=== PATIENT | female | born 1960 | race Caucasian/White ===

== ENCOUNTER 2024-01-07 09:53 | Observation (INO) | payer BC ==
[2024-01-07] MEDS ORDERED: Sodium Chloride 0.9% 10 ML Syringe FLUSH PRN ×2 (10:04→13:31)
[2024-01-07 10:10] LABS: BASOPHILS ABSOLUTE AUTO 0.02 10^3/uL (0.00-0.10); BASOPHILS PERCENT AUTO 0.1 % (0.0-1.0); EOSINOPHILS ABSOLUTE AUTO 0.01 10^3/uL (0.10-0.30); HEMATOCRIT 33.5 % (37.0-47.0); HEMOGLOBIN 11.9 g/dL (12.0-16.0); IMMATURE GRAN PERCENT AUTO 0.4 % (0.0-5.0); LYMPHOCYTES ABSOLUTE AUTO 3.04 10^3/uL (1.00-4.00); LYMPHOCYTES PERCENT AUTO 13.1 % (20.0-40.0); MEAN CORPUSCULAR HEMOGLOBIN 31.4 pg (27.0-31.0); MEAN CORPUSCULAR HGB CONC 35.5 g/dL (32.0-36.0); MEAN CORPUSCULAR VOLUME 88.4 fL (82.0-92.0); MEAN PLATELET VOLUME 9.1 fL (7.4-10.4); MONOCYTES ABSOLUTE AUTO 1.45 10^3/uL (0.10-0.80); MONOCYTES PERCENT AUTO 6.3 % (2.0-8.0); NEUTROPHILS ABSOLUTE AUTO 18.54 10^3/uL (2.50-7.00); NEUTROPHILS PERCENT AUTO 80.1 % (50.0-70.0); PLATELET COUNT,PLT 216 10^3/uL (150-400); RED BLOOD CELL COUNT 3.79 10^6/uL (3.80-5.50); RED CELL DISTRIBUTION WIDTH 12.3 % (11.5-14.5); WHITE BLOOD CELL COUNT,WBC 23.16 10^3/uL (5.00-10.00)
[2024-01-07] MEDS: Sodium Chloride 0.9% 1,000 ML IV ONE ×2 (10:10→11:15)
[2024-01-07 10:34] LABS: ALBUMIN 3.29 g/dL (3.40-5.00); ANION GAP 15.2 mmol/L (5-15); BILIRUBIN TOTAL 0.8 mg/dL (0.2-1.0); CALCIUM 8.2 mg/dL (8.7-10.3); CARBON DIOXIDE,CO2 24.1 mmol/L (21.0-32.0); CREATININE 1.77 mg/dL (0.51-1.17); EST CRCL DRUG DOSING (CG) 29.65 mL/min; POTASSIUM,K 3.3 mmol/L (3.5-5.1); PROTEIN TOTAL,TP 7.5 g/dL (6.4-8.2)
[2024-01-07 10:52] LABS: APPEARANCE,URINE CLOUDY (CLEAR); BILIRUBIN,URINE SMALL (NEGATIVE); COLOR,URINE YELLOW (YELLOW); GLUCOSE,URINE NEGATIVE (NEGATIVE); KETONES,URINE NEGATIVE (NEGATIVE); LEUKOCYTE ESTERASE,URINE SMALL (NEGATIVE); NITRITE,URINE NEGATIVE (NEGATIVE); PH,URINE 5.5 (5.0-9.0); PROTEIN,URINE 100 mg/dL (NEGATIVE); UROBILINOGEN,URINE 0.2 E.U./dL (0.2-1.0)
[2024-01-07] MEDS: Sodium Chloride 0.9% 1,000 ML ONE (11:16)
[2024-01-07 11:20] LABS: INFLUENZA A NAA NEGATIVE (NEGATIVE); INFLUENZA B NAA NEGATIVE (NEGATIVE); RESPIRATORY SYNCYTIAL VIR NAA NEGATIVE (NEGATIVE)
[2024-01-07 11:28] LABS: OCCULT BLOOD,URINE SMALL (NEGATIVE)
[2024-01-07 11:29] LABS: EPITHELIAL CELLS,URINE FEW /LPF; RBC,URINE 0-5 /HPF (0-5)
[2024-01-07 11:29] LABS: CORONAVIRUS COVID-19 NAA NEGATIVE (NEGATIVE)
[2024-01-07 11:30] LABS: BACTERIA,URINE FEW /HPF (NONE TO FEW); MUCUS,URINE FEW /LPF (NEGATIVE)
[2024-01-07 11:34] LABS: LACTIC ACID 1.5 mmol/L (0.4-2.0)
[2024-01-07] MEDS: Levofloxacin/Dextrose 5%-Water 500 MG in Premix Bag 1 BAG IV ONE (11:43)
[2024-01-07] MEDS: Albuterol/Ipratropium 3.0-0.5 MG/3 ML Neb Soln NEB ONE (11:54)
[2024-01-07] MEDS ORDERED: Albuterol/Ipratropium 3.0-0.5 MG/3 ML Neb Soln NEB PRN (13:31)
[2024-01-07] MEDS ORDERED: Ibuprofen 200 MG Tab PO PRN (13:31)
[2024-01-07] MEDS ORDERED: Acetaminophen 325 MG Tab PO PRN (13:31)
[2024-01-07] MEDS ORDERED: Ondansetron 4 MG/2 ML SDV IV PRN (13:31)
[2024-01-07] MEDS ORDERED: Polyethylene Glycol 3350 Powder 17 GM Packet PO PRN (13:31)
[2024-01-07] MEDS ORDERED: Magnesium Hydroxide 400 MG/5 ML Susp 30 ML Cup PO PRN (13:31)
[2024-01-07] MEDS: amLODIPine 5 MG Tab**OWN MED PO SCH (13:45)
[2024-01-07] MEDS: metroNIDAZOLE 500 MG Tab PO SCH (13:56)
[2024-01-07] MEDS ORDERED: Sodium Chloride 0.9% 250 ML IV SCH (14:00)
[2024-01-07] MEDS: Sodium Chloride 0.9% 1,000 ML IV SCH (15:31)
[2024-01-07] MEDS: Levofloxacin 500 MG Tab PO SCH (22:59)
[2024-01-08 07:49] LABS: BASOPHILS ABSOLUTE AUTO 0.01 10^3/uL (0.00-0.10); BASOPHILS PERCENT AUTO 0.1 % (0.0-1.0); HEMATOCRIT 31.5 % (37.0-47.0); HEMOGLOBIN 10.7 g/dL (12.0-16.0); IMMATURE GRAN ABSOLUTE AUTO 0.04 10^3/uL (0.00-0.50); IMMATURE GRAN PERCENT AUTO 0.3 % (0.0-5.0); LYMPHOCYTES PERCENT AUTO 16.3 % (20.0-40.0); MEAN CORPUSCULAR HEMOGLOBIN 30.7 pg (27.0-31.0); MEAN CORPUSCULAR VOLUME 90.5 fL (82.0-92.0); MEAN PLATELET VOLUME 9.2 fL (7.4-10.4); MONOCYTES ABSOLUTE AUTO 0.71 10^3/uL (0.10-0.80); MONOCYTES PERCENT AUTO 5.3 % (2.0-8.0); NEUTROPHILS ABSOLUTE AUTO 10.52 10^3/uL (2.50-7.00); PLATELET COUNT,PLT 208 10^3/uL (150-400); RED BLOOD CELL COUNT 3.48 10^6/uL (3.80-5.50); RED CELL DISTRIBUTION WIDTH 12.5 % (11.5-14.5); WHITE BLOOD CELL COUNT,WBC 13.48 10^3/uL (5.00-10.00)
[2024-01-08 08:06] LABS: ANION GAP 14.9 mmol/L (5-15); CALCIUM 7.4 mg/dL (8.7-10.3); CARBON DIOXIDE,CO2 23.3 mmol/L (21.0-32.0); EST CRCL DRUG DOSING (CG) 52.4 mL/min; MAGNESIUM 1.3 mg/dL (1.8-2.4); POTASSIUM,K 3.2 mmol/L (3.5-5.1)
[2024-01-08] MEDS: Potassium Chloride 20 MEQ Tab.ER PO ONE (08:47)
[2024-01-08] MEDS: LEVOTHYROXINE 125 MCG PO SCH (08:47)
[2024-01-08] MEDS: Magnesium Oxide 500 MG Tab PO SCH (08:47)
[2024-01-09] MEDS ORDERED: Levofloxacin 500 MG Tab PO SCH (09:00)
== END 2024-01-08 10:30 | disposition home or self-care (01) ==
LOC: KA.ED 09:53 → KA.MS 11:58
PROVIDERS: ADMIT Family Medicine; ATTEND Family Medicine
DX: J18.9 Pneumonia, unspecified organism (principal); N17.9 Acute kidney failure, unspecified; E87.8 Other disorders of electrolyte and fluid balance, not elsewhere classified; I10 Essential (primary) hypertension; E03.9 Hypothyroidism, unspecified; Z87.891 Personal history of nicotine dependence; Z79.890 Hormone replacement therapy; Z79.899 Other long term (current) drug therapy; Z88.0 Allergy status to penicillin; Z88.2 Allergy status to sulfonamides
CPT/HCPCS: 0241U; 36415; 71045; 80048; 80053; 81001; 83605; 83735; 85025; 87040; 87086; 87088; 87186; 96361; 96365; 99223-GT; 99239-GT; 99284; 99285-25; A9270-GY; G0378; J1956; J7030; J7620-GY; Q3014